=== PATIENT | female | born 1975 | race Caucasian/White ===

== ENCOUNTER 2018-04-18 17:54 | Emergency (ER) | payer OTHER ==
[~2018-04-18] VITALS: Ht 160 cm; Wt 79.5 kg
[2018-04-18 18:13] VITALS: BP 112/48
== END 2018-04-18 20:20 | disposition home or self-care (01) ==
LOC: ER 17:55
DX: R51 Headache (principal); R20.0 Anesthesia of skin; E11.9 Type 2 diabetes mellitus without complications; J45.909 Unspecified asthma, uncomplicated; F17.200 Nicotine dependence, unspecified, uncomplicated; F12.90 Cannabis use, unspecified, uncomplicated
CPT/HCPCS: 99281

== ENCOUNTER 2023-12-22 09:02 | Day surgery (SDC) | payer MEDICAID ==
[~2023-12-22] VITALS: Ht 160 cm; Wt 106.0 kg
[2023-12-22] VITALS (20 sets, daily range): BP systolic 64–145; BP diastolic 29–85; PULSE 82–110; RESP 16–18; O2SAT 85–95
[2023-12-22] MEDS ORDERED: AMBR10TA5 (09:20)
[2023-12-22] MEDS ORDERED: BUME1TAB8 (09:20)
[2023-12-22] MEDS ORDERED: SPIR50TA5 PO (09:20)
[2023-12-22] MEDS ORDERED: FLUT1BLS25 (09:20)
[2023-12-22] MEDS ORDERED: SEMA0.258 (09:20)
[2023-12-22] MEDS ORDERED: EMPA10TA PO (09:20)
[2023-12-22] MEDS ORDERED: SELE1600 (09:20)
[2023-12-22] MEDS ORDERED: fentaNYL/PF 50MCG/1 ML 2ML syringe ONE (09:57)
[2023-12-22] MEDS ORDERED: propofol inj 20 ML IV ONE (09:57)
[2023-12-22] MEDS ORDERED: midazolam 1 mg/ML 2ml injection ONE (09:57)
[2023-12-22] MEDS ORDERED: succinylcholine 20mg/ml inj IV ONE (09:58)
[2023-12-22] MEDS ORDERED: dexamethasone sod phosphate 4mg/ml inj. ONE (09:58)
[2023-12-22] MEDS ORDERED: desflurane 240ml liquid inh. IH ONE (10:07)
== END 2023-12-22 13:47 | disposition home or self-care (01) ==
LOC: GI LAB 09:02
PROVIDERS: ATTEND Internal Medicine Gastroenterology
DX: R10.13 Epigastric pain (principal); K29.50 Unspecified chronic gastritis without bleeding; I11.0 Hypertensive heart disease with heart failure; I50.9 Heart failure, unspecified; J44.9 Chronic obstructive pulmonary disease, unspecified; E66.9 Obesity, unspecified; F17.210 Nicotine dependence, cigarettes, uncomplicated; Z88.8 Allergy status to other drugs, medicaments and biological substances
CPT/HCPCS: 43239; J0330; J1100; J2250; J2704; J3010; J7030; Z7512; A4618; A4620; J2371